=== PATIENT | male | born 1985 | race Caucasian/White ===

== ENCOUNTER 2020-08-09 13:25 | Outpatient (REF) | payer OTHER, SELFPAY ==
[2020-08-09 17:23] LABS: TSH reflex Free T4 1.94 uIU/mL (0.32-4.0)
[2020-08-09 17:24] LABS: Alanine Aminotransferase 124 U/L (0-40); Albumin Level 4.5 g/dL (3.5-5.0); Alkaline Phosphatase 89 U/L (39-117); Anion Gap 16 (12-20); Aspartate Amino Transferase 74 U/L (5-37); Bilirubin Total 0.9 mg/dL (0.0-1.0); Blood Urea Nitrogen 14 mg/dL (9-16); Carbon Dioxide 21 mmol/L (22-29); Chloride 105 mmol/L (96-108); Cholesterol 173 mg/dL; Estimated Glomerular Filt Rate > 60; Glucose Fasting 114 mg/dL (60-99); HDL Cholesterol 39 mg/dL; LDL Cholesterol Calculated 96 mg/dl; Sodium 138 mmol/L (135-145); Total Protein 7.2 g/dL (6.5-8.0); Triglycerides 190 mg/dL
[2020-08-15 12:37] LABS: Testosterone, Free 17.3 pg/mL (35.0-155.0); Testosterone, Total 119 ng/dL (250-1100)
== END 2020-08-09 13:26 | disposition home or self-care (01) ==
LOC: HO.HMGCLDS 13:25
PROVIDERS: PCP Nurse Practitioner Family; Visit Provider Nurse Practitioner Family
DX: N52.9 Male erectile dysfunction, unspecified (principal)
CPT/HCPCS: 36415; 80053; 80061; 84402; 84403; 84443

== ENCOUNTER 2021-07-21 10:05 | Outpatient (REF) | payer OTHER, SELFPAY ==
--- NOTE | ~2021-07-21 | US_ITS ---
EXAMINATION: US ABDOMEN COMPLETE CLINICAL INFORMATION: Abnormal levels of other serum enzymes. COMPARISON: Ultrasound abdomen 01/21/2007 TECHNIQUE: Real-time imaging of the abdominal viscera. FINDINGS: PANCREAS: Not well visualized ABDOMINAL AORTA: The proximal, mid, and distal segments are normal in caliber. INFERIOR VENA CAVA: Visualized portions are normal. LIVER: The liver is normal in size. The liver contour is normal. Liver echotexture is increased. No focal hepatic lesion. There is no intrahepatic biliary duct dilatation seen. GALLBLADDER: Normal. The gallbladder is physiologically distended without evidence of stones, sludge, polyps, wall thickening or pericholecystic fluid. COMMON BILE DUCT: Normal in caliber measuring 0.35 cm in diameter. RIGHT KIDNEY: Normal. No hydronephrosis. No renal calculi or focal parenchymal lesions. The kidney measures 11.5 cm in maximum dimension. LEFT KIDNEY: Normal. No hydronephrosis. No renal calculi or focal parenchymal lesions. The kidney measures 11.2 cm in maximum dimension. SPLEEN: Normal. The spleen measures 12.7 cm in maximum dimension. FREE FLUID: None. US/US abdomen complete IMPRESSION: Echogenic liver probably representing fatty infiltration. Limited visualization of the pancreas.
[2021-07-21 11:39] LABS: Alanine Aminotransferase 22 U/L (0-40); Albumin Level 4.9 g/dL (3.5-5.0); Alkaline Phosphatase 68 U/L (39-117); Anion Gap 13 (12-20); Aspartate Amino Transferase 21 U/L (5-37); Blood Urea Nitrogen 15 mg/dL (9-16); Calcium 9.8 mg/dL (8.4-10.2); Carbon Dioxide 24 mmol/L (22-29); Chloride 105 mmol/L (96-108); Cholesterol 147 mg/dL; Estimated Glomerular Filt Rate > 60; Glucose Fasting 102 mg/dL (60-99); HDL Cholesterol 38 mg/dL; LDL Cholesterol Calculated 71 mg/dl; Potassium 4.2 mmol/L (3.3-5.1); Sodium 138 mmol/L (135-145); Triglycerides 192 mg/dL
[2021-07-21 11:58] LABS: HBS Num1 27.06 mIU/mL (0-7.99); HBc Num1 0.09 S/CO (0.00-0.79); HBsAGNum1 0.25 S/CO (0.00-0.99); Hepatitis B Core Antibody Nonreactive (Nonreactive); Hepatitis B Surface Antigen Negative (Negative); ~HepC Num1 0.11 S/CO (0.00-0.79); ~Hepatitis B Surface Antibody REACTIVE (Nonreactive); ~Hepatitis C Antibody Nonreactive (Nonreactive)
[2021-07-21 12:01] LABS: TSH reflex Free T4 3.22 uIU/mL (0.32-4.0)
[2021-07-22 21:17] LABS: Lyme Abs Screen <0.90 index
[2021-07-23 04:10] LABS: Hepatitis A Antibody IgM 0.29 Index (0-0.79); ~Hepatitis A Antibody IgM Nonreactive (Nonreactive)
== END 2021-07-21 10:06 | disposition home or self-care (01) ==
LOC: HO.HMGCX 10:05
PROVIDERS: PCP Nurse Practitioner Family; Visit Provider Nurse Practitioner Family
DX: Z00.00 Encounter for general adult medical examination without abnormal findings (principal); R74.8 Abnormal levels of other serum enzymes
CPT/HCPCS: 36415; 76700; 80053; 80061; 84443; 86617; 86618; 86704; 86706; 86709; 86803; 87340

== ENCOUNTER → 2022-02-19 11:04 | Outpatient (BNVA) | payer OTHER, SELFPAY | PROVIDERS: PCP Nurse Practitioner Family; Visit Provider Physician Assistant | DX: K58.0 Irritable bowel syndrome with diarrhea (principal) | CPT/HCPCS: 99202; 99212 ==

== ENCOUNTER 2023-01-12 10:02 | Outpatient (AMB) | payer OTHER, SELFPAY ==
--- NOTE | 2023-01-12 10:24 | A.OFFPC_ITS ---
Vital Signs 01/12/23 10:26 Height 5 ft 11 in Weight 246 lb BMI 34.3 BP 124/94 H Blood Pressure Location Lt brachial Position Sitting Pulse 83 Pulse Source Pulse Oximeter Pulse Oximetry (%) 97 Oxygen Delivery Method Room Air Intake Visit Reasons: Some health concerns Intake Note: Pt is here today c/o insomnia Allergies No Known Allergies Allergy (Verified 02/19/22 11:13) Tobacco use date assessed: 01/12/23 Dental Screening Dental Screen Date: 01/12/23 Did you have a dental visit in the last 12 months?: No Was dental information given to patient?: Patient has dentist HPI Some health concerns HPI Details Pt is here for a PE. Will order labs. Pt's blood pressure is elevated today. Will have him monitor his BP at home and drop off readings in approx 3 weeks. Denies chest pain, shortness of breath, headache, dizziness, and blurred vision. PFSH Medical History Mild depression Family History Father Hypertension Mother Cancer Hypertension Social History Housing: House Alcohol intake: current Alcohol intake frequency: a few times a month Patient Tobacco Use Status: Never used Tobacco e-Cigarette/Vaping Use: Never Used Second Hand Smoke Exposure: No Current occupational status: employed Current occupation: [employer] Current occupational exposures/hazards: No Cognitive needs: No Hearing needs: No Vision needs: Yes Questionnaire PHQ-9 Over the last 2 weeks, how often have you been bothered by any of the following problems? 1. Little interest or pleasure in doing things: several days 2. Feeling down, depressed, or hopeless: several days 3. Trouble falling or staying asleep, or sleeping too much: several days 4. Feeling tired or having little energy: several days 5. Poor appetite or overeating: not at all 6. Feeling bad about yourself - or that you are a failure or have let yourself or your family down: several days 7. Trouble concentrating on things, such as reading the newspaper or watching television: not at all 8. Moving or speaking so slowly that other people could have noticed. Or the opposite - being so fidgety or restless that you have been moving around a lot more than usual: several days 9. Thoughts that you would be better off or of hurting yourself in some way: not at all Total score: 6 Depression Screening Interpretation: Negative Depression Screening Done: Yes 45413 - PHQ-9 Billing: Yes Source: Developed by Drs. John Zavala, Ruth Perrin, Ricardo Magana and colleagues, with an educational claire from [employer]. Thrive Questionnaire Date Thrive assessed: 01/12/23 I am a: Patient Within the past 12 months, did the food you bought not last and you didn't have the money to get more?: Never true Within the past 12 months, did you worry whether your food would run out before you got money to buy more?: Never true Do you have trouble paying for medicines?: No Do you have trouble getting transportation to medical appointments?: No Do you have trouble paying your heating and electricity bill?: No Do you have trouble taking care of your child, family member or friend?: No Do you have trouble with day-to-day activities such as bathing, preparing meals, shopping, managing finances, etc.?: No Are you currently unemployed and looking for a job?: No Are you interested in more education?: No Currently or been in a relationship where the following occur: no concerns reported AUDIT C Alcohol Use Questionnaire (AUDIT-C) 1. How often do you have a drink containing alcohol?: Monthly or less 2. How many drinks containing alcohol do you have on a typical day when you are drinking?: 1 or 2 3. How often do you have six or more drinks on one occasion?: Never Total Score: 1 JESSICA-7 AMB Questionnaire JESSICA-7 Date JESSICA - 7 assessed: 01/12/23 Feeling nervous, anxious, or on edge: 1 = Several days Not being able to stop or control worryin = Not at all Worrying too much about different things: 1 = Several days Trouble relaxin = Not at all Being so restless that it is hard to sit still: 1 = Several days Becoming easily annoyed or irritable: 0 = Not at all Feeling afraid as if something awful might happen: 0 = Not at all Total JESSICA-7 score (0-4 normal; 5-9 mild; 10-14 moderate; 15-21 severe): 3 Source: Developed by Drs. John Zavala, Ruth Perrin, Ricardo Magana and colleagues, with an educational claire from [employer]. JESSICA-7 Assessment Billing JESSICA-7 Assessment Tool: JESSICA-7 Assessment 91616 Review of Systems Const Denies chills and Denies fever(s) Eyes Denies blurry vision ENT Denies vertigo, Denies dizziness and Denies sore throat Card Denies chest pain at rest, Denies chest pain with activity, Denies diaphoresis, Denies dyspnea and Denies dyspnea on exertion Resp Denies cough, Denies dyspnea, Denies dyspnea on exertion and Denies wheezing GI Denies abdominal pain, Denies melena, Denies hematochezia, Denies constipation, Denies diarrhea and Denies loose stools Denies hematuria Musc Denies numbness and Denies tingling Skin/Breast Denies lesions Neuro Denies vertigo, Denies dizziness, Denies numbness and Denies tingling Psych Denies anxiety, Denies depression, Denies homicidal ideation, Denies suicidal ideation and Denies other (substance abuse) Aller/Immun Denies wheezing Physical exam (Primary Care) Vital Signs: Last Vital Signs Pulse 83 01/12/23 10:26 BP 124/94 H 01/12/23 10:26 Pulse Ox 97 01/12/23 10:26 Oxygen Delivery Method Room Air 01/12/23 10:26 BMI result Body Mass Index 34.3 Tobacco/Smoking Status: Tobacco use Status Tobacco use date assessed 01/12/23 01/12/23 10:29 Patient Tobacco Use Status Never used Tobacco 01/12/23 10:26 e-Cigarette/Vaping Use Never Used 01/12/23 10:26 PHQ-9: PHQ-9 Score PHQ-9: Total score 6 01/12/23 11:00 Depression Screening Interpretation: Negative Thrive Assessment: Date of Thrive Assessment Date Thrive assessed 01/12/23 01/12/23 10:29 Currently or been in a relationship where the following occur: no concerns reported Const General: cooperative Nutritional Appearance: obese Orientation/consciousness: patient oriented x3 HENMT Head: Yes normal to inspection, Yes normocephalic and Yes atraumatic Ears: TM's normal bilaterally Eyes General: appearance normal, both eyes and all related structures Alignment and Position: alignment normal and position normal Neck Neck: Yes normal visual inspection and Yes no lymphadenopathy Thyroid: Thyroid normal Resp Effort & Inspection: normal respiratory effort Auscultation: clear to auscultation bilaterally Cardio Rate: regular rate Rhythm: regular rhythm Heart sounds: S1 normal heart sound present, S2 normal heart sound present and no murmurs GI Palpation (GI): Soft to palpation and nontender Auscultation: normal bowel sounds Male General Exam: Yes normal external exam Penis: normal penis Scrotum: scrotum normal, testes descended bilaterally and no inguinal hernias Testes: no testicular mass Skin Rashes: no rashes Neuro General: patient oriented x3 Romberg Test: Negative Psych Appearance: grossly normal Mental Status: mental status grossly normal Speech and movement: Normal speech and movement present Affect: normal affect Attitude: cooperative Thought process: Normal thought process present Thought content: Normal thought content present Insight: Good insight present (Psych) Judgement: Good judgement present (Psych) Assessment and Plan Assessment & Plan (1) Physical exam: Code(s): Z00.00 - Encounter for general adult medical examination without abnormal findings Plan: Labs ordered Plan The patient agreed to the use of a rn medical surgical for this encounter. Scribed for LESA Tanner by Eliane Clinton rn medical surgical, on 01/12/2023 at 10:35 EST. Orders: Orders Complete Blood Count Auto Diff Today Z00.00 - Encounter for general adult medical examination without abnormal findings Comprehensive [place]. Panel Fast Today Z00.00 - Encounter for general adult medical examination without abnormal findings TSH reflex Free T4 Today Z00.00 - Encounter for general adult medical examination without abnormal findings UA CC w/rflx Micro + Cult Today Z00.00 - Encounter for general adult medical examination without abnormal findings Lipid Panel Today Z00.00 - Encounter for general adult medical examination without abnormal findings Coding Level of Care Code Est Pt Prev Care 18-39y(15614) Diagnoses Physical exam Z00.00 Additional Codes JESSICA-7 Assessment Billing - JESSICA-7 Assessment Tool: JESSICA-7 Assessment 13539 ([id number])
[2023-01-12 10:26] VITALS: BP 124/94; PULSE 83; O2SAT 97; BMI 34.3
== END 2023-01-12 10:54 | disposition home or self-care (01) ==
PROVIDERS: PCP Nurse Practitioner Family; Visit Provider Nurse Practitioner Family
DX: Z00.00 Encounter for general adult medical examination without abnormal findings (principal)
CPT/HCPCS: 99395

== ENCOUNTER 2023-05-17 09:19 | Outpatient (AMB) | payer OTHER, SELFPAY ==
--- NOTE | 2023-05-17 09:25 | A.OFFPC_ITS ---
Vital Signs 05/17/23 09:27 Height 5 ft 11 in Weight 255 lb BMI 35.6 BP 118/82 Blood Pressure Location Rt brachial Position Sitting Pulse 84 Pulse Source Pulse Oximeter Pulse Oximetry (%) 98 Oxygen Delivery Method Room Air Intake Visit Reasons: 4 month fu Intake Note: pt is here to follow for abnormal labs Allergies No Known Allergies Allergy (Verified 05/17/23 10:00) Medication List - Last Reconciled 05/17/23 by LESA Martinez No Known Home Meds Tobacco use date assessed: 05/17/23 Dental Screening Dental Screen Date: 05/17/23 Did you have a dental visit in the last 12 months?: No Did you have a dental problem in the last 6 months where you did not have access to dental care?: No Was dental information given to patient?: No HPI 4 month fu HPI Details Blood pressure is stable today. Pt reports that his blood pressure has been stable at home. Denies chest pain, shortness of breath, headache, dizziness, and blurred vision. PFSH Medical History Mild depression Family History Father Hypertension Mother Cancer Hypertension Social History Housing: House Alcohol intake: current Alcohol intake frequency: a few times a month Patient Tobacco Use Status: Never used Tobacco e-Cigarette/Vaping Use: Never Used Second Hand Smoke Exposure: No Current occupational status: employed Current occupation: [employer] Current occupational exposures/hazards: No Cognitive needs: No Hearing needs: No Vision needs: Yes Questionnaire PHQ-9 Over the last 2 weeks, how often have you been bothered by any of the following problems? 1. Little interest or pleasure in doing things: not at all 2. Feeling down, depressed, or hopeless: several days 3. Trouble falling or staying asleep, or sleeping too much: several days 4. Feeling tired or having little energy: several days 5. Poor appetite or overeating: several days 6. Feeling bad about yourself - or that you are a failure or have let yourself or your family down: several days 7. Trouble concentrating on things, such as reading the newspaper or watching television: not at all 8. Moving or speaking so slowly that other people could have noticed. Or the opposite - being so fidgety or restless that you have been moving around a lot more than usual: not at all 9. Thoughts that you would be better off or of hurting yourself in some way: not at all Total score: 5 Source: Developed by Drs. John Zavala, Ruth Perrin, Ricardo Magana and colleagues, with an educational claire from [employer]. Thrive Questionnaire Date Thrive assessed: 05/17/23 I am a: Patient What is your living situation today?: I have a steady place to live Within the past 12 months, did the food you bought not last and you didn't have the money to get more?: Never true Within the past 12 months, did you worry whether your food would run out before you got money to buy more?: Never true Do you have trouble paying for medicines?: No Do you have trouble getting transportation to medical appointments?: No Do you have trouble paying your heating and electricity bill?: No Do you have trouble taking care of your child, family member or friend?: No Do you have trouble with day-to-day activities such as bathing, preparing meals, shopping, managing finances, etc.?: No Are you currently unemployed and looking for a job?: No Are you interested in more education?: No THRIVE Score: 0 AUDIT C Alcohol Use Questionnaire (AUDIT-C) 1. How often do you have a drink containing alcohol?: Monthly or less 2. How many drinks containing alcohol do you have on a typical day when you are drinking?: 1 or 2 3. How often do you have six or more drinks on one occasion?: Never Total Score: 1 JESSICA-7 AMB Questionnaire JESSICA-7 Date JESSICA - 7 assessed: 05/17/23 Feeling nervous, anxious, or on edge: 2 = More than half the days Not being able to stop or control worryin = Several days Worrying too much about different things: 2 = More than half the days Trouble relaxin = Not at all Being so restless that it is hard to sit still: 0 = Not at all Becoming easily annoyed or irritable: 0 = Not at all Feeling afraid as if something awful might happen: 0 = Not at all Total JESSICA-7 score (0-4 normal; 5-9 mild; 10-14 moderate; 15-21 severe): 5 Source: Developed by Drs. John Zavala, Ruth Perrin, Ricardo Magana and colleagues, with an educational claire from [employer]. Review of Systems Const Reports as per HPI Physical exam (Primary Care) Vital Signs: Last Vital Signs Pulse 84 05/17/23 09:27 BP 118/82 05/17/23 09:27 Pulse Ox 98 05/17/23 09:27 Oxygen Delivery Method Room Air 05/17/23 09:27 BMI result Body Mass Index 35.6 Tobacco/Smoking Status: Tobacco use Status Tobacco use date assessed 05/17/23 05/17/23 09:33 Patient Tobacco Use Status Never used Tobacco 05/17/23 09:25 e-Cigarette/Vaping Use Never Used 05/17/23 09:25 PHQ-9: PHQ-9 Score PHQ-9: Total score 5 05/17/23 09:52 Thrive Assessment: Date of Thrive Assessment Date Thrive assessed 05/17/23 05/17/23 09:52 Const General: cooperative Nutritional Appearance: obese Orientation/consciousness: patient oriented x3 Resp Effort & Inspection: normal respiratory effort Auscultation: clear to auscultation bilaterally Cardio Rate: regular rate Rhythm: regular rhythm Heart sounds: S1 normal heart sound present and S2 normal heart sound present Neuro General: patient oriented x3 Psych Appearance: grossly normal Mental Status: mental status grossly normal Speech and movement: Normal speech and movement present Affect: normal affect Attitude: cooperative Thought process: Normal thought process present Thought content: Normal thought content present Insight: Good insight present (Psych) Judgement: Good judgement present (Psych) Assessment and Plan Assessment & Plan (1) HTN (hypertension): Code(s): I10 - Essential (primary) hypertension Plan: encouraged pt to get labs drawn Plan The patient agreed to the use of a medical records manager for this encounter. Scribed for LESA Tanner by Eliane Clinton medical records manager, on 05/17/2023 at 09:40 EST. Coding Level of Care Code Est Pt Level 3 (71074) Diagnoses HTN (hypertension) I10
[2023-05-17 09:27] VITALS: BP 118/82; PULSE 84; O2SAT 98; BMI 35.6
== END 2023-05-17 09:44 | disposition home or self-care (01) ==
PROVIDERS: PCP Nurse Practitioner Family; Visit Provider Nurse Practitioner Family
DX: I10 Essential (primary) hypertension (principal)
CPT/HCPCS: 99213

== ENCOUNTER 2023-12-20 10:58 | Outpatient (REF) | payer OTHER, SELFPAY | END 2023-12-20 10:59 | disposition home or self-care (01) | LOC: HO.LAB 10:58 | PROVIDERS: PCP Nurse Practitioner Family; Visit Provider Physician Assistant | DX: J02.9 Acute pharyngitis, unspecified (principal) | CPT/HCPCS: 87070; 87880; 99212 ==

== ENCOUNTER 2023-12-20 10:58 | Outpatient (AMB) | payer OTHER, SELFPAY ==
--- OUTSIDE RECORDS SUMMARY | 2023-12-20 10:59 | XMS_ITS | Continuity of Care Document ---
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 Role Phone Not on Staff, PCP Primary Care Physician Unavail able [place] [facility] [place] - 09/04/[address] [address]- Encounter Diagnosis CAP (community acquired pneumonia)(Final) - 09/04/22 Discharge Disposition: A-D/C Home Attending Physician: Adriana Aguilera MD Admitting Physician: Adriana Aguilera MD Referring Physician: Not on Staff, Referring MD Allergies, Adverse Reactions, Alerts No Known Allergies Medications Augmentin 875 mg-125 mg oral tablet 1 tablet, By Mouth, 2 times a day, for 5 days, # 10 tablet, 0 Refills, Acute 09/09/22 13:03:00 EDT,09/04/22 13:03:00 EDT, Tablet, [id number], Partial fill upon patient request if the prescription is for a schedule II opioid drug., 180, cm, ... Start Date: 09/04/22 Stop Date: 09/09/22 Status: Ordered Azithromycin 5 Day Dose Pack 250 mg oral tablet 1 pack/packet, By Mouth, Once, as directed on package labeling, # 6 tablet, 0 Refills, Soft Stop, 09/04/22 13:03:00 EDT, Tablet, [id number], Partial fill upon patient request if the prescription is for a schedule II opioid drug., 180, cm, 2... Start Date: 09/04/22 Status: Ordered dicyclomine 10 mg oral capsule 1 capsule = 10 mg, By Mouth, 4 times a day, # 56 capsule, 0 Refills, Maintenance, 11/12/13 20:02:07, Capsule Start Date: 11/12/13 Stop Date: 11/26/13 Status: Ordered Problem List Condition Confirmation Course Effective Dates Status Health St atus Informant Obese class I Confirmed Active Results Radiology Reports * Exam Date Time Procedure Performing Provider Status 09/04/22 7:19 AM Chest 2 Views Frontal and Lat Any Patrick; Auth (Verified) Notes: (Chest 2 Views Frontal and Lat) Reason For Exam: Chest Pain;Other: RESULT: Chest 2 Views Frontal and Lat Chest 2 Views Frontal and Lat Hx of Present Illness: pt here heartburn since this afternoon sts he woke up with SOB and cough as well sts he has hx of heartburn and sts it feels like that; COMPARISON: None on record at the time of interpretation. FINDINGS: LUNGS AND PLEURA: Streaky peripheral opacities in the mid to lower left lung field laterally projecting in the lingula on the lateral radiograph. No pleural effusion. No pneumothorax. HEART, MEDIASTINUM AND SHAYY: Heart is normal in size. Normal mediastinal and hilar contour. BONES AND SOFT TISSUES: No acute abnormality. IMPRESSION: Multifocal lingular infiltrate concerning for developing pneumonia. WSN: [id number] Ordering Physician: Irena Gupta Dictated By: Tiago Eden MD Dictated Date/Time: 09/04/22 7:29 am Reviewed By: Tiago Eden MD Signed By: Tiago Eden MD Signed Date/Time: 09/04/22 7:29 am Transcribed By: EDUARDA Transcribed Date/Time: 09/04/22 7:28 am Vital Signs Most recent to oldest [Reference Range]: 1 2 3 Height 180 cm (09/04/22 1:25 PM) 180 cm (09/04/22 11:30 AM) 180 cm (09/04/22 9:16 AM) Weight 108 kg (09/04/22 1:25 PM) 108 kg (09/04/22 11:30 AM) 108 kg (09/04/22 9:16 AM) Oxygen Saturation [94-100 %] 98 % (09/04/22 1:25 PM) 99 % (09/04/22 11:30 AM) 100 % (09/04/22 9:16 AM) Pulse Rate [55-90 bpm] 87 bpm (09/04/22 1:25 PM) 90 bpm (09/04/22 11:30 AM) 103 bpm *H* (09/04/22 9:16 AM) Body Mass Index [18.5-24.99 kg/m2] 33.33 kg/m2 *>HHI* (09/04/22 1:25 PM) 33.33 kg/m2 *>HHI* (09/04/22 11:30 AM) 33.33 kg/m2 *>HHI* (09/04/22 9:16 AM) Blood Pressure [90-138/55-84 mm Hg] 125/81mm Hg (09/04/22 1:25 PM) 142/81mm Hg *H* (09/04/22 11:30 AM) 143/86mm Hg *H* (09/04/22 9:16 AM) Respiratory Rate [16-30 br/min] 14 br/min *L* (09/04/22 1:25 PM) 16 br/min (09/04/22 11:30 AM) 16 br/min (09/04/22 9:16 AM) Temperature [96.8-100.4 DegF] 98.1 DegF (09/04/22 11:30 AM) 97.7 DegF (09/04/22 9:16 AM) 98.2 DegF (09/04/22 8:00 AM) Mode of Delivery (Oxygen) Room air (09/04/22 1:25 PM) Room air (09/04/22 11:30 AM) Room air (09/04/22 9:16 AM) Blood pressure sites Arm, right (09/04/22 1:25 PM) Arm, right (09/04/22 11:30 AM) Arm, right (09/04/22 9:16 AM) Temperature Route Oral (09/04/22 11:30 AM) Oral (09/04/22 9:16 AM) Oral (09/04/22 8:00 AM) Dry Weight 108 kg (09/04/22 1:25 PM) 108 kg (09/04/22 11:30 AM) 108 kg (09/04/22 9:16 AM) EKG study * Event Display: ECG 12-Lead Authored Date: Please click on pdf link to open report * Event Display: ECG 12-Lead Authored Date: Ventricular Rate: 94 BPM Atrial Rate: 94 BPM P-R Interval: 186 ms QRS Duration: 100 ms Q-T Interval: 346 ms QTC Calculation(Bazett): 432 ms P [place]: 21 degrees R [place]: -53 degrees T [place]: 44 degrees Normal sinus rhythm Left axis deviation Incomplete right bundle branch block Inferior infarct , age undetermined Abnormal ECG No previous ECGs available Confirmed by SHAWNA NOLASCO ([id number]) on 09/04/2022 2:27:13 PM [place]: SHAWNA NOLASCO Note * Re Joseph: SIGN, VERIFY, PERFORM Event Display: Patient Education Handout Authored Date: * Re Joseph: PERFORM Event Display: Patient Education Leaflets Authored Date: [facility] - If you need a Doctor or Clinic ?? 34 If You Need a Doctor or Clinic ?? Call [facility] PCP Assignment Line to help you find a doctor:?? [phone] ?? Clinics in [place], [place] For a full list of clinics:? [email or web address] ?? [facility]? [address] [phone] [facility] Internal medicine Clinic?[address]?[phone] [facility]?[address][phone] [facility]?[address][phone] [facility]?[address] [phone] [facility]?[address][phone] [facility]?[address][phone] [facility]?[address] [phone] [facility]? [address][phone] [facility] licensed master social worker?[address][phone] [facility]?[address][phone] [facility]?[address][phone] [facility]?[address][phone] [facility]? [address][phone] [facility]?[address][phone] ? * Re Joseph: PERFORM Event Display: Patient Education Leaflets Authored Date: [id number] Pneumonia (Adult) ?? [id number] Pneumonia (Adult) Pneumonia is an infection inside the lungs. It's in the small air sacs (alveoli). It may be caused by a virus, fungus, or bacteria. Pneumonia caused by bacteria??is treated with an antibiotic medicine. Severe cases may need to be treated in the hospital. Milder cases can be treated at home. Symptoms may include fever, chills, and cough (dry or with phlegm). You may have a headache, muscle weakness, trouble breathing, and pain. These symptoms often get worse in the first 2 days. But they often start to get better in the first week of treatment. Home care Follow these guidelines when caring for yourself at home: ??? Get plenty of rest. Take naps as needed. Don???t let yourself get too tired when you go back to your activities. Go back to activities asdirected by your healthcare provider. ??? Stop smoking. This is the most important step you can take to help treat pneumonia. If you need help to stop, talk with your healthcare provider. ??? Stay away from secondhand smoke. Don???t let anyone smoke in your home or your car. ??? Wash your hands often with soap and clean, running water. Rub for at least 20 seconds. Make sure to clean under your nails and between your fingers. When you can't wash your hands, use hand gameplay programmer with at least 60% al cohol. ??? Cover your mouth and nose when coughing or sneezing. Use a tissue or the inside of your elbow. Don't cough or sneeze into your hands. Throw used tissues away. Be sure to wash your hands after coughing, sneezing, or blowing your nose. ??? Limit close contact with other people while you are sick. ??? Stay away from crowds during cold and flu season. Consider wearing a mask in crowds. ???Use pain medicine as directed. You may use acetaminophen or ibuprofen to control fever or pain, unless another medicine was prescribed. If you have chronic liver or kidney disease, talk with your healthcare provider before using these medicines. Also talk with your provider if you???ve had a stomach ulcer or bleeding in your stomach or intestines. Don???t give aspirin to a child younger than age 19 unless directed by the provider. Taking aspirin can put a child at risk for Ap syndrome. This is a rare but very serious disorder. It most often affects the brain and the liver. ??? Drink plenty of water and other fluids. This can make mucus thinner and easier to cough up. Ask your healthcare provider how much water you should drink. For many people, 6 to 8 glasses (8 ounces each) a day is a good goal. Other fluids include sport drinks, sodas without caffeine, juices, tea, or soup. If you also have heart or kidney disease, check with your provider before you drink extra fluids. ??? Eat asyou are able. You may not feel hungry, so a light diet is fine. Follow the treatment plan as advised by your healthcare provider. ??? Take medicines as instructed by your healthcare provider. If you were given an antibiotic medicine, take it until it's all gone, even if you are feeling better aftera few days. ??? Try to stay away from air pollution. If you live in an area with air pollution, track the Air Quality Index (AQI) reports. Plan your outdoor activities when air quality is OK. ?? Follow-up care Follow up with your healthcare provider in the next 2 to 3 days, or as advised. Following up with your provider as directed is important to make sure you are getting better. You may need more tests if you aren't getting better. Take steps to prevent future infections. Ask your healthcare provider what vaccines are right for you and when to get them. This may include the influenza (flu), COVID-19, and pneumococcal vaccines. ?? Call 911 Call 911if any of these occur: ??? Unable to speak or swallow ??? Lips or skin looks blue, purple, or edwards ??? Feeling dizzy ??? Fainting ??? Unable to be awake or aware ??? Feeling of doom ??? Trouble breathing or wheezing ??? Shortness of breath gets worse or doesn't get better with treatment ???Rapid breathing (more than 25 breaths per minute) ??? Coughing up blood ??? Chest pain gets worse with breathing or doesn't get better with treatment ?? When to get medical advice Call your healthcare provider right away if any of these occur: ??? You don???t get better in the first 2 to 3 days of treatment ??? Fever of??100.4??F (38??C) or higher, or as directed by your healthcare provider ??? Shaking chills ??? Cough with phlegm that doesn't get better, or get worse ??? Shortness of breath with activities ??? Weakness, dizziness, or fainting that gets worse ??? Thirst ordry mouth that gets worse ??? Sinus pain, headache, or a stiff neck ??? Chest pain with breathing or coughing ??? Symptoms that get worse or don't get better ?? Last Reviewed Date: 2021 ?? 2329-9946 [employer]. All rights reserved. This information is not intended as a substitute for professional medical care. Always follow your healthcare professional's instructions. ?? Patient Care team information Care Team Personnel Name: Not on Staff, PCP Position: [facility] Physician (General Medicine) Member Role: PCP Name: Adriana Aguilera MD Position: [facility] ED Medicine MD Member Role: Admitting Physician Address: Address: [address] [place] [id number]- [place] Name: Chiara Tovar RN Position: [facility] ED RN W/OE and Tasks Member Role: Patient Care Provider Name: Venkat Martin Position: [facility] ED TA [place] Name: Re Joseph Position: [facility] Associate Professional Member Role: ED Physician Oak Tanner Address: Address: [address] [place] [address] [place] [address]- Care Team Related Persons Name: DOC HILL Address: home [address] [place] [id number]
--- OUTSIDE RECORDS SUMMARY | 2023-12-20 10:59 | XMS_ITS | Continuity of Care Document ---
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 Name Role Phone Alexander (Ref) Kyle MAY Primary Care Physi [facility] [place] [facility] [place] [facility] [address] [place] [address]- Attending Physician: Ricardo Benoit MD Admitting Physician: Ricardo Benoit MD Referring Physician: Alexander (Roselia) Kyle MAY Allergies, Adverse Reactions, Alerts No Known Allergies Medications dicyclomine 10 mg oral capsule 1 capsule = 10 mg, By Mouth, 4 times a day, # 56 capsule, 0 Refills, Maintenance, 11/12/13 20:02:07, Capsule Start Date: 11/12/13 Stop Date: 11/26/13 Status: Ordered Patient Care team information Care Team Personnel Name: Alexander Caraballo) Kyle MAY Position: Reference Physician Member Role: PCP Address: Address: [address] [place] [id number]- Care Team Related Persons Name: DOC HILL Address: home [address] [place] [address]
--- OUTSIDE RECORDS SUMMARY | 2023-12-20 10:59 | XMS_ITS | Continuity of Care Document ---
Author Organization [facility] Address [address] [place] [address]- Care Team Providers Care Second Steward Name Role Phone Alexander (Ref) Kyle MAY Primary Care Physi [facility] [place] [facility] [place] - [place]/22 [facility] [address] [place] [address]- Attending Physician: Olinda Fountain Admitting Physician: AdmtrOlinda Referring Physician: Admtr Ar8 Allergies, Adverse Reactions, Alerts No Known Allergies Medications dicyclomine 10 mg oral capsule 1 capsule = 10 mg, By Mouth, 4 times a day, # 56 capsule, 0 Refills, Maintenance, 11/12/13 20:02:07, Capsule Start Date: 11/12/13 Stop Date: 11/26/13 Status: Ordered Patient Care team information Care Team Personnel Name: Alexander (Ref) Kyle MAY Position: Reference Physician Member Role: PCP Address: Address: [address] [place] [address]- Care Team Related Persons Name: DOC HILL Address: home [address] [place] [address]
[2023-12-20 11:18] VITALS: BP 130/78; PULSE 102; TEMP 36.2; O2SAT 98; BMI 36.7
--- NOTE | 2023-12-20 11:18 | MHC.OFFWIV ---
Intake Vital Signs 12/20/23 11:18 Height 5 ft 11 in Weight 263 lb BMI 36.7 BP 130/78 Blood Pressure Location Rt brachial Position Sitting Pulse 102 H Pulse Source Pulse Oximeter Temp 97.2 F Temp Source Oral Pulse Oximetry (%) 98 Oxygen Delivery Method Room Air Intake Visit Reasons: EP-step throat Intake Note: Patient here for sore throat that has been present since . Patient Tobacco Use Status: Never used Tobacco Allergies No Known Allergies Allergy (Verified 12/20/23 11:19) Do you need a note to return to daycare/school/sports/work: No HPI HPI Comments History of Present Illness Details Patient is a 38-year-old male complaining of 3 days of a sore throat. He denies any white spots in the back of his throat. He denies a cough or fevers but he did have chills yesterday. He denies any headaches or swollen glands. He tells me his girlfriend was diagnosed with strep last week and treated and feels better. [facility] Medical History Mild depression Family History Father Hypertension Mother Cancer Hypertension Social History Housing: House Alcohol intake: current Alcohol intake frequency: a few times a month Patient Tobacco Use Status: Never used Tobacco e-Cigarette/Vaping Use: Never Used Second Hand Smoke Exposure: No Current occupational status: employed Current occupation: [employer] Current occupational exposures/hazards: No Cognitive needs: No Hearing needs: No Vision needs: Yes Review of Systems Const All systems reviewed & are unremarkable except as noted in HPI and below Physical Exam Vital Signs: Last Vital Signs Temp 97.2 F 12/20/23 11:18 Pulse 102 H 12/20/23 11:18 BP 130/78 12/20/23 11:18 Pulse Ox 98 12/20/23 11:18 Oxygen Delivery Method Room Air 12/20/23 11:18 BMI result Body Mass Index 36.7 Const General: cooperative, healthy appearing, comfortable and no acute distress Orientation/consciousness: patient oriented x3 Limitations: no limitations HEENT Head: Yes normal to inspection Ears: hearing grossly normal bilaterally, external ears normal and TM's normal bilaterally General nose exam: Normal external nose present, Normal nares present and No nasal discharge present Face and sinus: Yes normal facial exam and Yes sinuses nontender Mouth: Normal oral and palatal mucosa present and moist mucous membranes Throat: Yes tonsils normal, Yes uvula midline and Yes posterior oropharynx abnormal (Erythema) Eyes General: appearance normal, both eyes and all related structures Neck Neck: Yes normal visual inspection Resp Effort & Inspection: normal respiratory effort, able to speak in complete sentences, no respiratory distress, not tachypneic, no tripod positioning and no use of accessory muscles Skin General skin exam: no rashes or lesions noted Neuro General: patient oriented x3 Extrem General: Yes normal to inspection and Yes no clubbing, cyanosis or edema Results AMB Rapid Strep AMB Rapid Strep Negative Last Edit by MARISOL Mcdaniels on 12/20/23 11:36 Assessment & Plan Assessment & Plan (1) Sore throat: Code(s): J02.9 - Acute pharyngitis, unspecified Plan: Rapid strep negative, no exudates on exam, however with close contact we will get a culture to determine if we will be treating with antibiotics. Center criteria score 1 point for no cough. Plan See above Orders: Orders AMB Rapid Strep Screen Today Z13.9 - Encounter for screening, unspecified Throat Culture Today J02.9 - Acute pharyngitis, unspecified Coding Level of Care Code Est Pt Level 3 (29846) Diagnoses Sore throat J02.9
== END 2023-12-20 12:50 | disposition home or self-care (01) ==
PROVIDERS: PCP Nurse Practitioner Family; Visit Provider Physician Assistant
DX: Z13.9 Encounter for screening, unspecified (principal); J02.9 Acute pharyngitis, unspecified

== ENCOUNTER 2024-02-02 10:55 | Outpatient (AMB) | payer OTHER, SELFPAY ==
[2024-02-02 10:55] VITALS: BP 122/80; PULSE 73; O2SAT 98; BMI 37.2
--- NOTE | 2024-02-02 10:55 | A.OFFPC_ITS ---
Vital Signs 02/02/24 10:55 Height 5 ft 11 in Weight 267 lb BMI 37.2 BP 122/80 Blood Pressure Location Lt brachial Position Sitting Pulse 73 Pulse Source Pulse Oximeter Pulse Oximetry (%) 98 Intake Visit Reasons: Annual PE Intake Note: pt is here for annual exam Review Specialist Required: No Accompanied by: Self / Same As Patient Allergies No Known Allergies Allergy (Verified 02/02/24 11:24) Medication List - Last Reconciled 02/02/24 by BRADLEY Martinez No Known Home Meds Tobacco use date assessed: 05/17/23 Dental Screening Dental Screen Date: 05/17/23 HPI HPI Comments History of Present Illness Details Pt is here for a PE. PFSH Medical History Mild depression Surgical History No pertinent past surgical history Family History Father Hypertension Mother Cancer Hypertension Social History Housing: House Alcohol intake: current Alcohol intake frequency: a few times a month Patient Tobacco Use Status: Never used Tobacco e-Cigarette/Vaping Use: Never Used Second Hand Smoke Exposure: No Current occupational status: employed Current occupation: [employer] Current occupational exposures/hazards: No Cognitive needs: No Hearing needs: No Vision needs: Yes Questionnaire PHQ-9 Over the last 2 weeks, how often have you been bothered by any of the following problems? 1. Little interest or pleasure in doing things: not at all 2. Feeling down, depressed, or hopeless: several days 3. Trouble falling or staying asleep, or sleeping too much: several days 4. Feeling tired or having little energy: several days 5. Poor appetite or overeating: not at all 6. Feeling bad about yourself - or that you are a failure or have let yourself or your family down: several days 7. Trouble concentrating on things, such as reading the newspaper or watching television: several days 8. Moving or speaking so slowly that other people could have noticed. Or the opposite - being so fidgety or restless that you have been moving around a lot more than usual: not at all 9. Thoughts that you would be better off or of hurting yourself in some way: not at all Total score: 5 Depression Screening Interpretation: Negative Depression Screening Done: Yes 50259 - PHQ-9 Billing: Yes Source: Developed by Drs. John Zavala, Ruth Perrin, Ricardo Magana and colleagues, with an educational claire from [employer]. Thrive Questionnaire Date Thrive assessed: 01/26/24 I am a: Patient What is your living situation today?: I have a steady place to live Within the past 12 months, did the food you bought not last and you didn't have the money to get more?: Never true Within the past 12 months, did you worry whether your food would run out before you got money to buy more?: Never true Do you have trouble paying for medicines?: No Do you have trouble getting transportation to medical appointments?: No Do you have trouble paying your heating and electricity bill?: No Do you have trouble taking care of your child, family member or friend?: No Do you have trouble with day-to-day activities such as bathing, preparing meals, shopping, managing finances, etc.?: No Are you currently unemployed and looking for a job?: Yes Are you interested in more education?: No Please select the resources that you would like help with: Care for elder or disabled Currently or been in a relationship where the following occur: No concerns reported THRIVE Score: 0 AUDIT C Alcohol Use Questionnaire (AUDIT-C) 1. How often do you have a drink containing alcohol?: Monthly or less 2. How many drinks containing alcohol do you have on a typical day when you are drinking?: 1 or 2 3. How often do you have six or more drinks on one occasion?: Never Total Score: 1 Score Reviewed/Action Taken: Yes JESSICA-7 AMB Questionnaire JESSICA-7 Date JESSICA - 7 assessed: 02/02/24 Feeling nervous, anxious, or on edge: 1 = Several days Not being able to stop or control worryin = Not at all Worrying too much about different things: 1 = Several days Trouble relaxin = Not at all Being so restless that it is hard to sit still: 0 = Not at all Becoming easily annoyed or irritable: 0 = Not at all Feeling afraid as if something awful might happen: 0 = Not at all Total JESSICA-7 score (0-4 normal; 5-9 mild; 10-14 moderate; 15-21 severe): 2 Source: Developed by Drs. John Zavala, Ruth Perrin, Ricardo Magana and colleagues, with an educational claire from [employer]. JESSICA-7 Assessment Billing JESSICA-7 Assessment Tool: JESSICA-7 Assessment 94936 Review of Systems Const Denies chills and Denies fever(s) Eyes Denies blurry vision ENT Denies vertigo, Denies dizziness and Denies sore throat Card Denies chest pain at rest, Denies chest pain with activity, Denies diaphoresis, Denies dyspnea and Denies dyspnea on exertion Resp Denies cough, Denies dyspnea, Denies dyspnea on exertion and Denies wheezing GI Denies abdominal pain, Denies melena, Denies hematochezia, Denies constipation, Denies diarrhea and Denies loose stools Denies hematuria Musc Denies numbness and Denies tingling Skin/Breast Denies lesions Neuro Denies vertigo, Denies dizziness, Denies numbness and Denies tingling Psych Denies anxiety, Denies depression, Denies homicidal ideation, Denies suicidal ideation and Denies other (substance abuse) Aller/Immun Denies wheezing Physical exam (Primary Care) Vital Signs: Last Vital Signs Pulse 73 02/02/24 10:55 BP 122/80 02/02/24 10:55 Pulse Ox 98 02/02/24 10:55 BMI result Body Mass Index 37.2 Tobacco/Smoking Status: Tobacco use Status Tobacco use date assessed 05/17/23 02/02/24 10:58 Patient Tobacco Use Status Never used Tobacco 02/02/24 10:58 e-Cigarette/Vaping Use Never Used 02/02/24 10:58 PHQ-9: PHQ-9 Score PHQ-9: Total score 5 02/02/24 11:24 Depression Screening Interpretation: Negative Thrive Assessment: Date of Thrive Assessment Date Thrive assessed 01/26/24 02/02/24 10:58 Currently or been in a relationship where the following occur: No concerns reported Const General: cooperative Nutritional Appearance: well nourished and obese Orientation/consciousness: patient oriented x3 HENMT Head: Yes normal to inspection, Yes normocephalic and Yes atraumatic Ears: TM normal on the right and TM normal on the left Eyes General: appearance normal, both eyes and all related structures Alignment and Position: alignment normal and position normal Neck Neck: Yes normal visual inspection, Yes no lymphadenopathy and Yes supple Resp Effort & Inspection: normal respiratory effort Auscultation: clear to auscultation bilaterally Cardio Rate: regular rate Rhythm: regular rhythm Heart sounds: S1 normal heart sound present, S2 normal heart sound present and no murmurs GI Palpation (GI): Soft to palpation and nontender Auscultation: normal bowel sounds Male General Exam: Yes normal external exam Penis: normal penis Scrotum: scrotum normal, testes descended bilaterally and no inguinal hernias Testes: no testicular mass Skin Rashes: no rashes Neuro General: patient oriented x3, moves all extremities, no focal motor deficits and deep tendon reflexes 2+ bilaterally Romberg Test: Negative Extrem Right lower extremity: no edema Left lower extremity: no edema Psych Affect: normal affect Attitude: cooperative Thought process: Normal thought process present Coding Level of Care Code Est Pt Prev Care 18-39y(45542) Diagnoses Physical exam Z00.00 Additional Codes JESSICA-7 Assessment Billing - JESSICA-7 Assessment Tool: JESSICA-7 Assessment 28861 ([id number]) PHQ-9 - 21205 - PHQ-9 Billing: Yes ([id number]) Assessment & Plan Assessment & Plan (1) Physical exam: Code(s): Z00.00 - Encounter for general adult medical examination without abnormal findings Category: Medical Plan labs ordered Orders: Orders UA CC w/rflx Micro + Cult Today Z00.00 - Encounter for general adult medical examination without abnormal findings Lipid Panel Today Z00.00 - Encounter for general adult medical examination without abnormal findings Complete Blood Count Auto Diff Today Z00.00 - Encounter for general adult medical examination without abnormal findings Comprehensive [place]. Panel Fast Today Z00.00 - Encounter for general adult medical examination without abnormal findings TSH reflex Free T4 Today Z00.00 - Encounter for general adult medical examination without abnormal findings
== END 2024-02-02 11:32 | disposition home or self-care (01) ==
PROVIDERS: PCP Nurse Practitioner Family; Visit Provider Nurse Practitioner Family
DX: Z00.00 Encounter for general adult medical examination without abnormal findings (principal)

== ENCOUNTER → 2024-02-02 10:55 | Outpatient (BNVA) | payer OTHER, SELFPAY | PROVIDERS: PCP Nurse Practitioner Family; Visit Provider Nurse Practitioner Family | DX: Z00.00 Encounter for general adult medical examination without abnormal findings (principal) | CPT/HCPCS: 96127 ==

== ENCOUNTER 2024-09-13 13:08 | Outpatient (AMB) | payer OTHER, SELFPAY ==
[2024-09-13 13:15] VITALS: BP 132/84; PULSE 100; TEMP 36.6; O2SAT 97; BMI 37.8
--- NOTE | 2024-09-13 13:15 | MHC.OFFWIV ---
Intake Vital Signs 09/13/24 13:15 Height 5 ft 11 in Weight 271 lb BMI 37.8 BP 132/84 Blood Pressure Location Lt brachial Position Sitting Pulse 100 Pulse Source Pulse Oximeter Temp 97.8 F Temp Source Oral Pulse Oximetry (%) 97 Oxygen Delivery Method Room Air Intake Visit Reasons: EP Injured ribs Intake Note: presents for right sided rib pain, felt a pop stepping out of a car 5 days ago Patient Tobacco Use Status: Never used Tobacco Allergies No Known Allergies Allergy (Verified 09/13/24 13:17) Do you need a note to return to daycare/school/sports/work: No HPI HPI Comments History of Present Illness Details Patient is a 39-year-old male complaining of right-sided rib pain and pain with deep inspiration for 5 days. He tells me that 5 days ago he was getting out of a car any heard a pop on his right upper abdomen. He did not hit the door and there was no trauma to the area. He has tried using heating pads as well as ibuprofen with minimal relief in his pain. He denies any shortness of breath or trouble breathing. [facility] Medical History Mild depression Surgical History No pertinent past surgical history Family History Father Hypertension Mother Cancer Hypertension Social History Housing: House Alcohol intake: current Alcohol intake frequency: a few times a month Patient Tobacco Use Status: Never used Tobacco e-Cigarette/Vaping Use: Never Used Second Hand Smoke Exposure: No Current occupational status: employed Current occupation: [employer] Current occupational exposures/hazards: No Cognitive needs: No Hearing needs: No Vision needs: Yes Review of Systems Const All systems reviewed & are unremarkable except as noted in HPI and below Physical Exam Vital Signs: Last Vital Signs Temp 97.8 F 09/13/24 13:15 Pulse 100 09/13/24 13:15 BP 132/84 09/13/24 13:15 Pulse Ox 97 09/13/24 13:15 Oxygen Delivery Method Room Air 09/13/24 13:15 BMI result Body Mass Index 37.8 Const General: cooperative, healthy appearing, comfortable, no acute distress and well developed Orientation/consciousness: patient oriented x3 Limitations: no limitations HEENT Head: Yes normal to inspection Ears: hearing grossly normal bilaterally General nose exam: Normal external nose present Face and sinus: Yes normal facial exam Eyes General: appearance normal, both eyes and all related structures Neck Neck: Yes normal visual inspection and Yes full ROM Chest Chest palpation & inspection: localized rib tenderness with anteroposterior compression right anterior-axillary line involving the 6th rib and involving the 7th rib, right mid-clavicular line involving the 6th rib and involving the 7th rib Resp Effort & Inspection: normal respiratory effort and able to speak in complete sentences Auscultation: clear to auscultation bilaterally Cardio Rate: regular rate Rhythm: regular rhythm Heart sounds: normal S1 and S2 Skin General skin exam: no rashes or lesions noted Neuro General: patient oriented x3 Extrem General: Yes normal to inspection Assessment & Plan Assessment & Plan (1) Rib pain on right side: Code(s): R07.81 - Pleurodynia Plan: Lung sounds noted in all blas. We will get an x-ray to rule out a rib fracture. Did educate patient that if he does have a rib fracture that there is not much he can do about it besides tried to manage the pain but most medications do not do a good job he can use lidocaine patches ice or heat as well as naproxen. If he develops any shortness of breath, he should return to the clinic or go to the emergency department. (2) Pain aggravated by coughing and deep breathing: Code(s): R52 - Pain, unspecified; R05.9 - Cough, unspecified Plan: as above Orders: Orders XR ribs RT min 3V w CXR1V Today R05.9 - Cough, unspecified, R07.81 - Pleurodynia, R52 - Pain, unspecified Coding Level of Care Code Est Pt Level 4 (80185) Diagnoses Rib pain on right side R07.81 Pain aggravated by coughing and deep breathing R52; R05.9
== END 2024-09-13 13:31 | disposition home or self-care (01) ==
PROVIDERS: PCP Nurse Practitioner Family; Visit Provider Physician Assistant
DX: R07.81 Pleurodynia (principal); R05.9 Cough, unspecified

== ENCOUNTER 2024-09-13 13:08 | Outpatient (REF) | payer OTHER, SELFPAY ==
--- NOTE | ~2024-09-13 | XR_ITS ---
EXAMINATION: XR RIBS, RIGHT CLINICAL INFORMATION: R07.81 - Pleurodynia COMPARISON: None available. TECHNIQUE: PA chest and 3 views of the right ribs were obtained. FINDINGS: Lungs are clear. No consolidation, pneumothorax, or pleural effusion. The cardiomediastinal silhouette and pulmonary vasculature are normal. Osseous structures are unremarkable. Ribs are intact. No fractures are identified. XR/XR ribs RT min 3V w CXR1V IMPRESSION: Unremarkable examination. Electronically signed by: Chas Castillo MD 09/13/2024 01:52 PM EDT
== END 2024-09-13 13:09 | disposition home or self-care (01) ==
LOC: HO.HMGCX 13:08
PROVIDERS: PCP Nurse Practitioner Family; Visit Provider Physician Assistant
DX: R07.81 Pleurodynia (principal); R05.9 Cough, unspecified
CPT/HCPCS: 71101; 99212

== ENCOUNTER → 2024-09-13 13:34 | Outpatient (BNV) | payer OTHER, SELFPAY | PROVIDERS: PCP Nurse Practitioner Family; Visit Provider Radiology Diagnostic Radiology | DX: R07.81 Pleurodynia (principal) | CPT/HCPCS: 71101 ==

== ENCOUNTER 2024-11-16 07:26 | Outpatient (REF) | payer OTHER, SELFPAY ==
[2024-11-16 10:18] LABS: MANUAL DIFF FLAG NO
[2024-11-16 10:19] LABS: Hematocrit 42.9 % (42.0-52.0); Hemoglobin 14.9 g/dl (14.0-18.0); Imm Gran Abs Auto 0.03 X10*3/uL (0.00-0.03); Imm Gran Pct Auto 0.3 % (0.0-0.4); Lymphocytes Absolute Auto 3.3 X10*3/uL (1.2-4.9); Mean Corpuscular HGB Conc 34.7 g/dl (31.0-36.0); Mean Corpuscular Hemoglobin 29.7 pg (27.0-33.0); Mean Corpuscular Volume 85.6 fL (80.0-98.0); NRBC Abs Auto 0.000 X10*3/uL (0.0-0.012); NRBC Pct Auto 0.0 /100WBC (0.0-0.2); Platelet Count 311 X10*3/uL (160-400); Red Blood Count 5.01 X10*6/uL (4.60-5.80); White Blood Count 8.8 X10*3/uL (4.8-10.8)
[2024-11-16 10:39] LABS: Alanine Aminotransferase 62 U/L (0-40); Albumin Level 4.8 g/dL (3.5-5.0); Alkaline Phosphatase 94 U/L (39-117); Anion Gap 14 (12-20); Aspartate Amino Transferase 57 U/L (5-37); Blood Urea Nitrogen 11 mg/dL (9-16); Calcium 9.3 mg/dL (8.4-10.2); Carbon Dioxide 21 mmol/L (22-29); Chloride 107 mmol/L (96-108); Cholesterol 194 mg/dL (<200); Estimated Glomerular Filt Rate > 60; HDL Cholesterol 39 mg/dL (>40); Potassium 4.2 mmol/L (3.3-5.1); Sodium 138 mmol/L (135-145); Total Protein 8.0 g/dL (6.5-8.0); Triglycerides 197 mg/dL (<150)
[2024-11-16 11:09] LABS: Appearance Urine Clear; Glucose Urine UA Negative (Negative); PH 5.5 (5.0-9.0); Specific Gravity - Urine 1.015 (1.005-1.025)
== END 2024-11-16 07:27 | disposition home or self-care (01) ==
LOC: HO.HMGCLDS 07:26
PROVIDERS: PCP Nurse Practitioner Family; Visit Provider Nurse Practitioner Family
DX: Z00.00 Encounter for general adult medical examination without abnormal findings (principal); Z13.6 Encounter for screening for cardiovascular disorders
CPT/HCPCS: 36415; 80053; 80061; 81003; 84443; 85025

== ENCOUNTER 2025-02-07 08:21 | Outpatient (AMB) | payer OTHER, SELFPAY ==
--- NOTE | 2025-02-07 08:34 | A.OFFPC_ITS ---
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 The patient has a history of fatty liver, and lab work from a couple of months ago revealed elevated liver enzymes and an elevated fasting blood sugar of 118. The patient reports starting to adjust the diet again to address these findings. The patient denies any family history of pancreatic cancer or prostate cancer. The patient has a psychiatrist and a therapist and reports doing quite well. Health Maintenance The patient presented for an annual physical exam. Follow-up is scheduled in one year, with repeat labs ordered in two months. Social History - Diet: The patient reports starting to adjust diet and was counseled on portion control. - Mental Health Support: The patient has a psychiatrist and a therapist and reports doing well. Review of Systems - Cardiovascular: Denies chest pain. - Respiratory: Denies shortness of breat h. - Gastrointestinal: Denies abdominal chaya n, blood in stool, constipation, or diarrhea. - Psychiatric: Denies suicidal or homici khurram ideation. Physical Exam General: Cooperative, healthy appearing, comfortable, no acute distress and well developed, obese Orientation: Patient oriented x3 Limitations: No limitations Head: Normal to inspection Ears: Hearing grossly normal bilaterally Nose: Normal external nose present Face and sinus: Normal facial exam Eyes: Appearance normal, both eyes and all related structures Neck: Normal visual inspection and Yes full ROM Respiratory: Normal respiratory effort and able to speak in complete sentences. Clear to auscultation bilaterally Cardiovascular: Regular rate and rhythm. Normal S1 and S2 GI: Normal to inspection. Soft to palpation and nontender : testicles without masses/lesions and no hernias appreciated Skin: No rashes or lesions noted Neuro: Patient oriented x3 Extremities: Normal to inspection Results - Labs from two months ago show: - Liver enzymes: Elevated. - Fasting blood sugar: 118. Plan 1. Elevated Liver Enzymes/Fatty Liver The patient's elevated liver enzymes are noted in the context of a known history of fatty liver. These will be monitored, and the patient reports initiating dietary changes. A repeat of liver enzymes will be performed in two months. 2. Hyperglycemia An elevated fasting blood sugar of 118 was noted on recent labs. The patient was counseled on the need for dietary adjustments and portion control to manage this. A follow-up fasting blood sugar and a hemoglobin A1c will be checked in two months to further assess glycemic control. Discussion Notes I reviewed the lab results from two months prior, noting the elevated liver enzymes and fasting blood sugar of 118, which is consistent with the patient's history of fatty liver. I emphasized the importance of dietary modifications and portion control. I informed the patient of the plan to recheck liver enzymes, fasting blood sugar, and a hemoglobin A1c in two months. We will have a follow- up visit in one year for the next annual exam. Patient Instructions - Your recent blood tests showed high li scott enzymes and a high fasting blood sugar level of 118. - You have a history of fatty liver, and it is important to continue to work on your diet to improve these numbers. - Please be mindful of your portion size s. - In two months, please go to the lab to have your blood drawn again. You will need to fast before this test. We will check your liver enzymes, fasting blood sugar, and a hemoglobin A1c. - Your next follow-up appointment will b e in one year. [facility] Medical History Fatty liver Mild depression Surgical History No pertinent past surgical history Family History Father Hypertension Mother Cancer Hypertension Social History Housing: House Alcohol intake: current Alcohol intake frequency: a few times a month Patient Tobacco Use Status: Never used Tobacco e-Cigarette/Vaping Use: Never Used Second Hand Smoke Exposure: No Current occupational status: employed Current occupation: [employer] Current occupational exposures/hazards: No Cognitive needs: No Hearing needs: No Vision needs: Yes Questionnaire PHQ-9 Over the last 2 weeks, how often have you been bothered by any of the following problems? 1. Little interest or pleasure in doing things: not at all 2. Feeling down, depressed, or hopeless: more than half the days 3. Trouble falling or staying asleep, or sleeping too much: more than half the days 4. Feeling tired or having little energy: more than half the days 5. Poor appetite or overeating: not at all 6. Feeling bad about yourself - or that you are a failure or have let yourself or your family down: more than half the days 7. Trouble concentrating on things, such as reading the newspaper or watching television: not at all 8. Moving or speaking so slowly that other people could have noticed. Or the opposite - being so fidgety or restless that you have been moving around a lot more than usual: more than half the days 9. Thoughts that you would be better off or of hurting yourself in some way: not at all Total score: 10 Depression Screening Interpretation: Positive (denies any si or hi) Depression Screening Follow-up: Existing condition and In treatment Depression Screening Done: Yes 86512 - PHQ-9 Billing: Yes Source: Developed by Drs. John Zavala, Ruth Perrin, Ricardo Magana and colleagues, with an educational claire from [employer]. Thrive Questionnaire Date Thrive assessed: 01/26/24 I am a: Patient What is your living situation today?: I have a steady place to live Within the past 12 months, did the food you bought not last and you didn't have the money to get more?: Sometimes True Within the past 12 months, did you worry whether your food would run out before you got money to buy more?: Sometimes True Do you have trouble paying for medicines?: No Do you have trouble getting transportation to medical appointments?: No Do you have trouble paying your heating and electricity bill?: Yes Do you have trouble taking care of your child, family member or friend?: No Do you have trouble with day-to-day activities such as bathing, preparing meals, shopping, managing finances, etc.?: No Are you currently unemployed and looking for a job?: Yes Are you interested in more education?: No Please select the resources that you would like help with: Food, Utilities and Daily support Currently or been in a relationship where the following occur: No concerns reported THRIVE Score: 3 AUDIT C Alcohol Use Questionnaire (AUDIT-C) 1. How often do you have a drink containing alcohol?: Monthly or less 2. How many drinks containing alcohol do you have on a typical day when you are drinking?: 1 or 2 3. How often do you have six or more drinks on one occasion?: Less than monthly Total Score: 2 JESSICA-7 AMB Questionnaire JESSICA-7 Date JESSICA - 7 assessed: 02/02/24 Feeling nervous, anxious, or on edge: 2 = More than half the days Not being able to stop or control worryin = More than half the days Worrying too much about different things: 2 = More than half the days Trouble relaxin = More than half the days Being so restless that it is hard to sit still: 0 = Not at all Becoming easily annoyed or irritable: 2 = More than half the days Feeling afraid as if something awful might happen: 2 = More than half the days Total JESSICA-7 score (0-4 normal; 5-9 mild; 10-14 moderate; 15-21 severe): 12 Source: Developed by Drs. John Zavala, Ruth Perrin, Ricardo Magana and colleagues, with an educational claire from [employer]. Physical exam (Primary Care) Vital Signs: Last Vital Signs Pulse 88 02/07/25 08:35 BP 120/84 02/07/25 08:35 Pulse Ox 98 02/07/25 08:35 Oxygen Delivery Method Room Air 02/07/25 08:35 BMI result Body Mass Index 34.7 Tobacco/Smoking Status: Tobacco use Status Tobacco use date assessed 02/07/25 02/07/25 08:40 Patient Tobacco Use Status Never used Tobacco 02/07/25 08:35 e-Cigarette/Vaping Use Never Used 02/07/25 08:35 PHQ-9: PHQ-9 Score PHQ-9: Total score 10 02/07/25 08:35 Depression Screening Interpretation: Positive (denies any si or hi) Depression Screening Follow-up: Existing condition and In treatment Thrive Assessment: Date of Thrive Assessment Date Thrive assessed 01/26/24 02/07/25 08:35 Currently or been in a relationship where the following occur: No concerns reported Coding Level of Care Code Est Pt Level 3 (74925) Est Pt Prev Care 40-64y(75713) Diagnoses Elevated liver enzymes R74.8 Elevated fasting blood sugar R73.01 Encounter for routine adult physical exam with abnormal findings Z00.01 Additional Codes PHQ-9 - 98565 - PHQ-9 Billing: Yes ([id number]) Assessment & Plan Assessment & Plan (1) Elevated liver enzymes: Code(s): R74.8 - Abnormal levels of other serum enzymes Category: Medical (2) Elevated fasting blood sugar: Code(s): R73.01 - Impaired fasting glucose Category: Medical (3) Encounter for routine adult physical exam with abnormal findings: Code(s): Z00.01 - Encounter for general adult medical examination with abnormal findings Category: Medical Plan . Orders: Orders Comprehensive [place]. Panel Fast 2 Months R73.01 - Impaired fasting glucose, R74.8 - Abnormal levels of other serum enzymes Hemoglobin A1c 2 Months R73.01 - Impaired fasting glucose, R74.8 - Abnormal levels of other serum enzymes
[2025-02-07 08:35] VITALS: BP 120/84; PULSE 88; O2SAT 98; BMI 34.7
== END 2025-02-07 09:05 | disposition home or self-care (01) ==
LOC: HO.HMCC 08:22
PROVIDERS: PCP Nurse Practitioner Family; Visit Provider Nurse Practitioner Family
DX: Z00.01 Encounter for general adult medical examination with abnormal findings (principal); R74.8 Abnormal levels of other serum enzymes; R73.01 Impaired fasting glucose

== ENCOUNTER → 2025-02-07 08:21 | Outpatient (BNVA) | payer OTHER, SELFPAY | PROVIDERS: PCP Nurse Practitioner Family; Visit Provider Nurse Practitioner Family | DX: Z00.01 Encounter for general adult medical examination with abnormal findings (principal); R74.8 Abnormal levels of other serum enzymes; K76.0 Fatty (change of) liver, not elsewhere classified; R73.9 Hyperglycemia, unspecified; R73.01 Impaired fasting glucose | CPT/HCPCS: 96127; 99396 ==